=== PATIENT | male | born 1930 | race Caucasian/White ===

== ENCOUNTER 2017-11-03 09:55 | Day surgery (SDC) | payer BC ==
[~2017-11-03] VITALS: Ht 177.8 cm; Wt 88.9 kg
[~2017-11-03 09:55] MED LIST: ALLOPURINOL100 MG PO; ANACIN 400-321 EACH PO; ASPIRIN81 M2 PO; COZAAR100 MG PO; DIPROLENE 0.05%15 GM TP; ELIQUIS2.5 MG PO; LANTUS 3 M100 UNITS1 SC; LASIX20 MG PO; LIPITOR40 MG PO; NITROSTAT0.4 MG SL; NORVASC5 MG PO; NOVOLOG PE100 UNITS/ SC; PROCARDIA XL60 MG PO; TEMOVATE 0.05%30 GM TP; TOPROL XL100 MG PO; ULTRAVATE15 G1 TP; VITAMIN D2000 UNI1 PO; XANAX0.25 MG PO
[2017-11-03 10:28] VITALS: BP 115/67
[2017-11-03 10:50] VITALS: BP 115/67
[2017-11-03 10:57] LABS: HEMOGLOBIN 13.4 G/DL (12.5-16.6); MCH 27.7 PG (29.0-34.0); MCHC 32.7 G/DL (30.0-36.0); MCV 84.9 FL (86-99); PLATELET COUNT 135 K/uL (156-360); RBC DIS.WIDTH-CV 15.3 % (11.8-14.6); RBC DIS.WIDTH-SD 46.5 % (39-53); RED BLOOD COUNT 4.83 M/uL (4.00-5.50)
[2017-11-03 11:19] LABS: CHLORIDE 109 MEQ/L (99-109); CREATININE 3.2 MG/DL (0.6-1.3); GFR ESTIMATE (CALCULATED) 20 mL/min/ (58.99-99999); GLUCOSE 100 mg/dL (70-99); POTASSIUM 4.6 MEQ/L (3.7-5.4); SODIUM 139 MEQ/L (136-147); UREA NITROGEN (BUN) 54 mg/dL (9-23)
[2017-11-03 18:15] VITALS: BP 141/79
== END 2017-11-03 18:40 | disposition home or self-care (01) ==
LOC: SDC 09:55
PROVIDERS: Surgery
PROC: 031C09F Bypass Left Radial Artery to Lower Arm Vein with Autologous Venous Tissue, Open Approach (ICD-10-PCS; principal; 2017-11-03)
DX: I12.0 Hypertensive chronic kidney disease with stage 5 chronic kidney disease or end stage renal disease (principal); E11.22 Type 2 diabetes mellitus with diabetic chronic kidney disease; N18.6 End stage renal disease; Z99.2 Dependence on renal dialysis; Z85.038 Personal history of other malignant neoplasm of large intestine; Z90.49 Acquired absence of other specified parts of digestive tract; Z98.890 Other specified postprocedural states; I25.10 Atherosclerotic heart disease of native coronary artery without angina pectoris; Z95.5 Presence of coronary angioplasty implant and graft; M19.90 Unspecified osteoarthritis, unspecified site; Z87.891 Personal history of nicotine dependence; Z79.4 Long term (current) use of insulin; Z79.01 Long term (current) use of anticoagulants; Z82.49 Family history of ischemic heart disease and other diseases of the circulatory system
CPT/HCPCS: 80048; 82948; 85027; J0690; J1170; J1644; J2250; J2720; S0020